=== PATIENT | female | born 1985 | race Caucasian/White ===

== ENCOUNTER 2016-07-18 15:32 | Emergency (ER) | payer MEDICAID ==
[2016-07-18 15:39] VITALS: BP 115/88
--- NOTE | 2016-07-18 15:47 | EDM.PDOC ---
ED HPI GENERAL MEDICAL PROBLEM - General Chief Complaint: ENT Problem Stated Complaint: TOOTH PAIN Time Seen by Provider: 07/18/16 15:33 Source of Information: Reports: Patient History Limitations: Reports: No Limitations - History of Present Illness INITIAL COMMENTS - FREE TEXT/NARRATIVE: The patient presents with right lower and upper tooth pain. She has some broken teeth with roots exposed. She also has some edema and pain. She denies fever or chills. She has no dentist in town. Onset: Gradual Duration: Day(s): (3) Location: Reports: Face (Dental pain on right upper and lower jaw) Quality: Reports: Sharp Severity: Severe Improves with: Reports: None Worsens with: Reports: None Associated Symptoms: Reports: No Other Symptoms Right Tooth/Teeth Pain Score (Numeric/FACES): 9 - Related Data Allergies Allergy/AdvReac Type Severity Reaction Status Date / Time oxycodone [From OxyContin] Allergy Vomiting Verified 07/18/16 15:39 Home Meds: Home Meds Amitriptyline [Elavil] 10 mg PO BEDTIME 07/18/16 [History] Hydrocodone/Acetaminophen [Hydrocodon-Acetaminophen 5-325] 1 - 2 each PO Q6HR PRN #20 tablet 07/18/16 [Rx] Penicillin V Potassium 500 mg PO Q6HR #40 tab 07/18/16 [Rx] Sertraline [Zoloft] 100 mg PO DAILY 07/18/16 [History] ED ROS ENT - Review of Systems Review Of Systems: See Below Constitutional: Reports: No Symptoms HEENT: Reports: Dental Pain Respiratory: Reports: No Symptoms Cardiovascular: Reports: No Symptoms Endocrine: Reports: No Symptoms GI/Abdominal: Reports: No Symptoms : Reports: No Symptoms Musculoskeletal: Reports: No Symptoms ED EXAM, ENT - Physical Exam Exam: See Below Exam Limited By: No Limitations General Appearance: Alert, No Apparent Distress Ears: Normal External Exam Nose: Normal Inspection Mouth/Throat: Other (Pain upon palpation to the right upper and lower jaw with mild edema. There is some fractured teeth.) Course - Vital Signs Last Recorded V/S: Last Vital Signs Temp 97.3 F 07/18/16 15:38 Pulse 95 07/18/16 15:38 Resp 20 07/18/16 15:38 BP 115/88 07/18/16 15:38 Pulse Ox 99 07/18/16 15:38 Departure - Departure Time of Disposition: 15:50 Disposition: Home, Self-Care 01 Condition: good Clinical Impression: Dental caries, Dental abscess, Pain, dental - Discharge Information Prescriptions: Hydrocodone/Acetaminophen [Hydrocodon-Acetaminophen 5-325] 1 - 2 each PO Q6HR PRN #20 tablet PRN Reason: Pain Penicillin V Potassium 500 mg PO Q6HR #40 tab Forms: ED Department Discharge Additional Instructions: Take the medication as prescribed. Follow up with a dentist. Please return if you are worse.
== END 2016-07-18 16:00 | disposition home or self-care (01) ==
LOC: JD.ED 15:32
DX: K04.7 Periapical abscess without sinus (principal); K02.9 Dental caries, unspecified; Z79.899 Other long term (current) drug therapy
CPT/HCPCS: 99283

== ENCOUNTER 2018-03-14 03:30 | Emergency (ER) | payer SELFPAY ==
[2018-03-14 03:48] VITALS: BP 148/100
[2018-03-14] MEDS ORDERED: HYDROmorphone 1 MG/ML Syringe IVPUSH ONE (04:05)
--- NOTE | 2018-03-14 04:05 | EDM.PDOC ---
ED HPI GENERAL MEDICAL PROBLEM - General Chief Complaint: Abdominal Pain Stated Complaint: BAD CRAMPS HISTORY OF OB ISSUES Time Seen by Provider: 03/14/18 04:00 Source of Information: Reports: Patient, Family History Limitations: Reports: No Limitations - History of Present Illness INITIAL COMMENTS - FREE TEXT/NARRATIVE: 32-year-old female attends the ED due to left lower quadrant pelvic pain radiating slightly to her lower back. Patient states that pain came on yesterday evening and has been gradually progressed in intensity. Patient works 4-11 shift and has not gone to bed yet today due to the severity of the pain. She states she was crying at home because the intensity of the pain. Pain is never rating up to the left flank. She has no history of renal lithiasis. She states her last 2 periods of been somewhat abnormal.. Denies any vaginal discharge dysuria urgency or frequency. Before last lasted only one day and was extremely heavy. The second period came a bit earlier than she anticip was heavy for one day and scanty for 2 more days. She is not using any form of control. She doesn't feel any breast tenderness or other signs or symptoms of . She's been ill as of late with some nausea vomiting and a lot of heartburn indigestion. She's also had some loose diarrhea stools 2 yesterday. No blood reported. 10 to be sharp and stabbing and strongly colicky. No previous abdominal surgery. He rates the pain is 5-6 out of 10. She does not appear to be in that period of discomfort. Onset: Gradual Onset Date: 03/13/18 Onset Time: 19:00 Duration: Hour(s):, Getting Worse Location: Reports: Abdomen Quality: Reports: Ache, Sharp, Stabbing Severity: Moderate (6710.) Improves with: Reports: Rest Worsens with: Reports: Other, Movement Context: Denies: Activity (Walking hurts.), Exercise, Sick Contact, Trauma, Other Associated Symptoms: Reports: No Other Symptoms, Loss of Appetite, Nausea/ Vomiting, Other. Denies: Confusion, Chest Pain, Cough, cough w sputum, Diaphoresis, Fever/Chills, Headaches, Malaise, Rash, Seizure (Acid some mild nausea vomiting and some bad heartburn the last few days), Shortness of Breath, Syncope Treatments [employer]ER: Reports: Other (see below) (Loose diarrhea stools 2 in the last 24 hours none.) Left Lower Abdomen Pain Score (Numeric/FACES): 5 - Related Data Allergies Allergy/AdvReac Type Severity Reaction Status Date / Time oxycodone [From OxyContin] Allergy Vomiting Verified 03/14/18 03:48 Home Meds: Home Meds Diclofenac Sodium [Voltaren] 50 mg PO TID #12 tab.ec 03/14/18 [Rx] Past Medical History HEENT History: Reports: Other (See Below) Other HEENT History: dental issues Psychiatric History: Reports: Depression Social & Family History - Tobacco Use Smoking Status *Q: Unknown Ever Smoked - Caffeine Use Caffeine Use: Reports: Soda - Living Situation & Occupation Living situation: Reports: Single Occupation: Employed ED ROS GENERAL - Review of Systems Review Of Systems: See Below Constitutional: Reports: Malaise, Fatigue, Decreased Appetite. Denies: Fever, Chills HEENT: Reports: Dental Pain Respiratory: Reports: No Symptoms Cardiovascular: Reports: No Symptoms Endocrine: Reports: No Symptoms GI/Abdominal: Reports: Abdominal Pain (See history of present illness), Diarrhea , Nausea (Loose mild's diarrhea stools the last 24 hours.), Other (GERD.). Denies: Flatus, Vomiting : Reports: No Symptoms Musculoskeletal: Reports: Back Pain (Low back pain but referred from the left lower quadrant abdominal pain) Skin: Reports: No Symptoms Neurological: Reports: No Symptoms Psychiatric: Reports: No Symptoms Hematologic/Lymphatic: Reports: No Symptoms Immunologic: Reports: No Symptoms ED EXAM, GI/ABD - Physical Exam Exam: See Below Exam Limited By: No Limitations General Appearance: Alert, WD/WN, No Apparent Distress, Other (Vital signs she is afebrile. BP is mildly elevated at 1 4100.) Eyes: Bilateral: Normal Appearance (No jaundice) Throat/Mouth: Other (Numerous dental caries appreciated particular a upper midline teeth.) Neck: Normal Inspection, Supple, Non-Tender, Full Range of Motion. No: Lymphadenopathy (L), Lymphadenopathy (R) Respiratory/Chest: No Respiratory Distress, Lungs Clear, Normal Breath Sounds, No Accessory Muscle Use, Chest Non-Tender Cardiovascular: Normal Peripheral Pulses, Regular Rate, Rhythm, No Edema, No Gallop, No Murmur, No Rub GI/Abdominal Exam: Normal Bowel Sounds, Soft, Tender (Nghia is well localized to the left lower quadrant of the abdomen deep almost in the pelvis.) Back Exam: Normal Inspection, Full Range of Motion. No: CVA Tenderness (L), CVA Tenderness (R) Extremities: Normal Inspection, Normal Range of Motion, Non-Tender, No Pedal Edema Neurological: Alert, Oriented, CN II-XII Intact, Normal Cognition Psychiatric: Normal Affect, Normal Mood Skin Exam: Warm, Dry, Intact, Normal Color, No Rash Course - Vital Signs Last Recorded V/S: Last Vital Signs Temp 36.9 C 03/14/18 03:44 Pulse 78 03/14/18 03:44 Resp 18 03/14/18 03:44 BP 148/100 H 03/14/18 03:44 Pulse Ox 100 03/14/18 03:44 - Orders/Labs/Meds Orders: Active Orders 24 hr Category Date Time Status Abdomen 1V Flat [CR] Stat Exams 03/14/18 04:06 Taken Dextrose 5%-0.9% NaCl [Dextrose 5%-Normal Saline] 1,000 Med 03/14/18 04:15 Active ml IV ASDIRECTED Ketorolac [Toradol] Med 03/14/18 05:00 Active 30 mg IVPUSH ONETIME Medication Orders Dextrose/Sodium Chloride (Dextrose 5%-Normal Saline) 1,000 mls @ 500 mls/hr IV ASDIRECTED RONNIE Last Admin: 03/14/18 04:26 Dose: 500 mls/hr Ketorolac Tromethamine (Toradol) 30 mg IVPUSH ONETIME RONNIE Last Admin: 03/14/18 05:05 Dose: 30 mg Labs: Laboratory Tests 03/14/18 03/14/18 03/14/18 Range/Units 03:40 03:40 04:19 WBC 10.88 H (3.98-10.04) K/mm3 RBC 4.16 (3.98-5.22) M/mm3 Hgb 11.9 (11.2-15.7) gm/L Hct 35.6 (34.1-44.9) % MCV 85.6 (79.4-94.8) fl MCH 28.6 (25.6-32.2) pg MCHC 33.4 (32.2-35.5) g/dl RDW Std Deviation 40.5 (36.4-46.3) fL Plt Count 246 (182-369) K/mm3 MPV 10.8 (9.4-12.3) fl Neutrophils % (Manual) 66 H (40-60) % Band Neutrophils % 0 (0-10) % Lymphocytes % (Manual) 29 (20-40) % Atypical Lymphs % 0 % Monocytes % (Manual) 4 (2-10) % Eosinophils % (Manual) 1 (0.7-5.8) % Basophils % (Manual) 0 L (0.1-1.2) Platelet Estimate Adequate RBC Morph Comment Normal Sodium (136-145) mEq/L Potassium (3.5-5.1) mEq/L Chloride (98-107) mEq/L Carbon Dioxide (21-32) mEq/L Anion Gap (5-15) BUN (7-18) mg/dL Creatinine (0.55-1.02) mg/dL Est Cr Clr Drug Dosing Estimated GFR (MDRD) (>60) mL/min BUN/Creatinine Ratio (14-18) Glucose (74-106) mg/dL Calcium (8.5-10.1) mg/dL Total Bilirubin (0.2-1.0) mg/dL AST (15-37) U/L ALT (14-59) U/L Alkaline Phosphatase (46-116) U/L C-Reactive Protein (<1.0) mg/dL Total Protein (6.4-8.2) g/dl Albumin (3.4-5.0) g/dl Globulin gm/dL Albumin/Globulin Ratio (1-2) Urine Color Yellow (Yellow) Urine Appearance Clear (Clear) Urine pH 6.0 (5.0-8.0) Ur Specific [place] 1.025 (1.005-1.030) Urine Protein Negative (Negative) Urine Glucose (UA) Negative (Negative) Urine Ketones Negative (Negative) Urine Occult Blood 1+ H (Negative) Urine Nitrite Negative (Negative) Urine Bilirubin Negative (Negative) Urine Urobilinogen 0.2 (0.2-1.0) Ur Leukocyte Esterase Negative (Negative) Urine RBC 0-5 (0-5) /hpf Urine WBC 0-5 (0-5) /hpf Ur Epithelial Cells 5-10 H (0-5) /hpf Calcium Oxalate Crystal Few H (NONE) Urine Bacteria Few (FEW) /hpf Urine Mucus Moderate H (FEW) /hpf Urine HCG, Qual Negative (NEGATIVE) 03/14/18 Range/Units 04:19 WBC (3.98-10.04) K/mm3 RBC (3.98-5.22) M/mm3 Hgb (11.2-15.7) gm/L Hct (34.1-44.9) % MCV (79.4-94.8) fl MCH (25.6-32.2) pg MCHC (32.2-35.5) g/dl RDW Std Deviation (36.4-46.3) fL Plt Count (182-369) K/mm3 MPV (9.4-12.3) fl Neutrophils % (Manual) (40-60) % Band Neutrophils % (0-10) % Lymphocytes % (Manual) (20-40) % Atypical Lymphs % % Monocytes % (Manual) (2-10) % Eosinophils % (Manual) (0.7-5.8) % Basophils % (Manual) (0.1-1.2) Platelet Estimate RBC Morph Comment Sodium 141 (136-145) mEq/L Potassium 3.5 (3.5-5.1) mEq/L Chloride 104 (98-107) mEq/L Carbon Dioxide 28 (21-32) mEq/L Anion Gap 12.5 (5-15) BUN 14 (7-18) mg/dL Creatinine 1.0 (0.55-1.02) mg/dL Est Cr Clr Drug Dosing TNP Estimated GFR (MDRD) > 60 (>60) mL/min BUN/Creatinine Ratio 14.0 (14-18) Glucose 102 (74-106) mg/dL Calcium 9.4 (8.5-10.1) mg/dL Total Bilirubin 0.1 L (0.2-1.0) mg/dL AST 11 L (15-37) U/L ALT 20 (14-59) U/L Alkaline Phosphatase 77 (46-116) U/L C-Reactive Protein 1.0 (<1.0) mg/dL Total Protein 7.0 (6.4-8.2) g/dl Albumin 3.8 (3.4-5.0) g/dl Globulin 3.2 gm/dL Albumin/Globulin Ratio 1.2 (1-2) Urine Color (Yellow) Urine Appearance (Clear) Urine pH (5.0-8.0) Ur Specific [place] (1.005-1.030) Urine Protein (Negative) Urine Glucose (UA) (Negative) Urine Ketones (Negative) Urine Occult Blood (Negative) Urine Nitrite (Negative) Urine Bilirubin (Negative) Urine Urobilinogen (0.2-1.0) Ur Leukocyte Esterase (Negative) Urine RBC (0-5) /hpf Urine WBC (0-5) /hpf Ur Epithelial Cells (0-5) /hpf Calcium Oxalate Crystal (NONE) Urine Bacteria (FEW) /hpf Urine Mucus (FEW) /hpf Urine HCG, Qual (NEGATIVE) Meds: Medications Generic Name Dose Route Start Last Admin Trade Name Freq PRN Reason Stop Dose Admin Dextrose/Sodium Chloride 1,000 mls @ 500 mls/hr 03/14/18 04:15 03/14/18 04:26 Dextrose 5%-Normal Saline IV 500 mls/hr ASDIRECTED RONNIE Administration Ketorolac Tromethamine 30 mg 03/14/18 05:00 03/14/18 05:05 Toradol IVPUSH 30 mg ONETIME RONNIE Administration Discontinued Medications Generic Name Dose Route Start Last Admin Trade Name Freq PRN Reason Stop Dose Admin Hydromorphone HCl 0.5 mg 03/14/18 04:05 03/14/18 04:22 Dilaudid IVPUSH 03/14/18 04:06 0.5 mg ONETIME ONE Administration Metoclopramide HCl 7.5 mg 03/14/18 04:06 03/14/18 04:21 Reglan IVPUSH 03/14/18 04:07 7.5 mg ONETIME ONE Administration - Radiology Interpretation Free Text/Narrative:: 32-year-old female presents the ED with gradually worsening left lower quadrant pelvic pain for the last 8 hours or more. She states the pain and intermittently becomes very colicky sharp and stabbing. Foreskin the ED she was crying at home. Currently pain is rated as a 5 out of 10 radiating to her left back. Radiating into her left flank. [place] reveals bowel sounds are mildly present in all 4 quadrants. Abdomen is mildly obese no previous surgical scars. Tenderness on deep palpation left lower quadrant of the abdomen almost in the groin/ pelvis. Periods of been somewhat irregular the last few months and the possibility of exists. Plan urinalysis and urine test. G labs including a CRP. One view of the abdomen will be done. IV will ED to D5 normal saline at 500 mils per hour. Given Dilaudid 0.5 mg IV and Reglan 7.5 mg IV. Pending these results I will decide if she needs a pelvic exam and perhaps follow-up pelvic ultrasound. - Re-Assessments/Exams Free Text/Narrative Re-Assessment/Exam: 03/14/18 04:51 KUB reveals slightly increased stool in the right hemicolon but no other abnormalities. There is also slightly increased stool in the descending colon making the amount of diarrhea she is experiencing likely minimal. The pelvis is empty and there is no evidence of any kidney stones. Bowel gas pattern is normal 03/14/18 04:54 urinalysis is essentially normal. Urine Beta hCG is also negative. She reports pain is getting better but still rates as a 4 out of 10. She again does not look to be in that degree of pain. I will give her Toradol 30 mg IV. 03/14/18 05:11 Labs are back. Total white count is 10.88 with 66% neutrophils and no band cells reported. Hemoglobin is mildly low 11.9 with hematocrit of 35.6. MCV is normal at 85.6. Will count normal 246,000. Sodium 141 with a potassium of 3.5. Chloride 104 the bicarbonate 28. And a gap is 12.5. BUN is 14 with a creatinine of 1.0. Glucose is 102. Calcium 9.4. Total bilirubin 0.1. AST is 11 with an ALT of 20. Alk phosphatase is normal at 77. C-reactive protein is 1.0. Urinalysis showed 1+ occult blood on the dip. Leukocyte Estrace was negative. On the micro-or slide 0-5 rbc's 0-5 WBCs and 5-10 epithelial suggesting some degree of contamination. Few calcium oxalate crystals appreciated moderate urine mucus. Patient's pain is improved after the Toradol IV. Suspect a small ruptured ovarian cyst. She is self-pay and doesn't wish to undergo any further investigations such as transient vaginal ultrasound or CT of the abdomen. That her abdominal examination is quite benign. Therefore be discharged to home on Toradol 10 mg every 6 hours needed for pain relief since she is allergic to oxycodone and likely hydrocodone both causing some excessive nausea and vomiting. Departure - Departure Time of Disposition: 05:16 Disposition: Home, Self-Care 01 Condition: Fair Clinical Impression: Abdominal pain Qualifiers: Abdominal location: left lower quadrant Qualified Code(s): R10.32 - Left lower quadrant pain Ovarian cyst Qualifiers: Laterality: left Qualified Code(s): N83.202 - Unspecified ovarian cyst, left side - Discharge Information *PRESCRIPTION DRUG MONITORING PROGRAM REVIEWED*: Not Applicable *COPY OF PRESCRIPTION DRUG MONITORING REPORT IN PATIENT BEV: Not Applicable Prescriptions: Diclofenac Sodium [Voltaren] 50 mg PO TID #12 tab.ec Referrals: PCP,None [Primary Care Provider] - Forms: ED Department Discharge, ED Return to Work/School Form Additional Instructions: Evaluation the emergency room this morning in regards to left lower quadrant abdominal pain that progressed over the last 8 hours. E[place] reveals tenderness on the left lower quadrant and left pelvis area. Urinalysis shows no evidence of kidney stone or infection. Urine test was also negative. Lab tests revealed no signs of an active infection and liver and kidney function are normal. X-ray of the abdomen showed no abnormalities involving the bowel. Therefore it is suspect that she likely had stevan small cyst rupture from the left ovary which causes inflammation of the lower lining of the abdomen and the current pain response. Usually subsides gradually over the next 3 days. Because your allergic to narcotic medications as they cause significant nausea and vomiting. Suggest use of Voltaren 50 mg 3 times daily about every 8 hours for the next 3-4 days to relieve pain and inflammation. Given to excuse her from the workplace today and tomorrow if needed. If pain not markedly improved in 48-72 hours time he should be reviewed either here or in the [facility]. - My Orders Last 24 Hours: My Active Orders 03/14/18 04:06 Abdomen 1V Flat [CR] Stat 03/14/18 04:15 Dextrose 5%-0.9% NaCl [Dextrose 5%-Normal Saline] 1,000 ml IV ASDIRECTED 03/14/18 05:00 Ketorolac [Toradol] 30 mg IVPUSH ONETIME - Assessment/Plan Last 24 Hours: My Active Orders 03/14/18 04:06 Abdomen 1V Flat [CR] Stat 03/14/18 04:15 Dextrose 5%-0.9% NaCl [Dextrose 5%-Normal Saline] 1,000 ml IV ASDIRECTED 03/14/18 05:00 Ketorolac [Toradol] 30 mg IVPUSH ONETIME
[2018-03-14] MEDS ORDERED: Metoclopramide 10 MG/2 ML SDV IVPUSH ONE (04:06)
[2018-03-14] MEDS ORDERED: Dextrose 5%-0.9% NaCl 1,000 ML IV SCH (04:15)
[2018-03-14] MEDS ORDERED: Ketorolac 30 MG/ML SDV IVPUSH SCH (05:00)
--- NOTE | 2018-03-14 06:16 | CR ---
Abdomen: Supine view of the abdomen was obtained. Comparison: No previous study. Bowel gas pattern is normal. Small calcification is noted within the left pelvis most likely due to small phlebolith if the patient has no obstructive ureteral symptoms. Equivocal small nonobstructing stone within the right kidney is seen. No soft tissue abnormality seen. Bony structures are unremarkable. Impression: 1. Possible small nonobstructing stone right kidney. 2. Minimal calcification within the left pelvis representing phlebolith if patient has no symptoms to indicate distal ureteral stone. Diagnostic code #2
== END 2018-03-14 05:35 | disposition home or self-care (01) ==
LOC: JD.ED 03:30
DX: N83.202 Unspecified ovarian cyst, left side (principal); Z88.5 Allergy status to narcotic agent
CPT/HCPCS: 36415; 74018; 80053; 81001; 81025; 85007; 85027; 86140; 96361; 96374; 96375; 99284; J1170; J1885; J2765; J7042

== ENCOUNTER 2018-04-17 13:57 | Emergency (ER) | payer SELFPAY ==
[2018-04-17 14:49] VITALS: BP 124/85
--- NOTE | 2018-04-17 15:27 | CR ---
Chest: Two views of the chest were obtained. Comparison: No prior chest x-ray. Heart size and mediastinum are normal. Lungs are clear with no acute parenchymal change. Bony structures are unremarkable. Impression: 1. Nothing acute is seen on two-view chest x-ray. Diagnostic code #1
[2018-04-17] MEDS ORDERED: predniSONE 20 MG Tab PO ONE (15:57)
--- NOTE | 2018-04-17 16:03 | EDM.PDOC ---
ED HPI GENERAL MEDICAL PROBLEM - General Chief Complaint: Respiratory Problem Stated Complaint: COUGH & VOMITING Time Seen by Provider: 04/17/18 15:10 Source of Information: Reports: Patient, RN Notes Reviewed History Limitations: Reports: No Limitations - History of Present Illness INITIAL COMMENTS - FREE TEXT/NARRATIVE: Patient is a 33 year old female who presents to the ED for the evaluation of a cough/vomiting. She states that this has been present for 2 days. She states that she coughs so much that she vomits. She is coughing hard enough that she has "messed herself". She admits to a history of Asthma. She does have an albuterol inhaler for his and has been using this the last 2 days. She admits to runny nose, nasal congestion, chest pain from coughing, watery eyes, and cough. She states that she is a smoker and uses 0.5 ppd. She states that she had a fever last night of 101 deg F, but did not have one today. Thoracic Pain Score (Numeric/FACES): 1 - Related Data Allergies Allergy/AdvReac Type Severity Reaction Status Date / Time oxycodone [From OxyContin] Allergy Vomiting Verified 04/17/18 14:49 Home Meds: Home Meds Albuterol [Proventil HFA] 1 inh INH ASDIRECTED 04/17/18 [History] Benzonatate [Tessalon Perle] 100 mg PO TID PRN #21 capsule 04/17/18 [Rx] Ondansetron [Zofran ODT] 4 mg PO Q6H PRN #20 tab.dis 04/17/18 [Rx] predniSONE [Deltasone] 20 mg PO ASDIRECTED #15 tablet 04/17/18 [Rx] Past Medical History HEENT History: Reports: Other (See Below) Other HEENT History: dental issues Respiratory History: Reports: Asthma Psychiatric History: Reports: Depression - Past Surgical History HEENT Surgical History: Reports: Other (See Below) Other HEENT Surgeries/Procedures: screen placement Social & Family History - Tobacco Use Smoking Status *Q: Current Every Day Smoker Years of Tobacco use: 15 Packs/Tins Daily: 0.5 - Caffeine Use Caffeine Use: Reports: Coffee - Recreational Drug Use Recreational Drug Use: No - Living Situation & Occupation Living situation: Reports: Single Occupation: Employed ED ROS GENERAL - Review of Systems Review Of Systems: See Below Constitutional: Reports: Fever. Denies: Chills, Malaise, Diaphoresis HEENT: Reports: Rhinitis Respiratory: Reports: Cough. Denies: Shortness of Breath, Wheezing Cardiovascular: Reports: Chest Pain (froum coughing) Endocrine: Reports: No Symptoms GI/Abdominal: Reports: Diarrhea, Nausea, Vomiting. Denies: Abdominal Pain : Reports: No Symptoms Musculoskeletal: Reports: No Symptoms Skin: Reports: No Symptoms Neurological: Reports: No Symptoms Psychiatric: Reports: No Symptoms Hematologic/Lymphatic: Reports: No Symptoms Immunologic: Reports: No Symptoms ED EXAM, GENERAL - Physical Exam Exam: See Below Exam Limited By: No Limitations General Appearance: Alert, WD/WN, No Apparent Distress Eye Exam: Bilateral Eye: EOMI, Normal Inspection, PERRL Ears: Normal External Exam Nose: Normal Inspection, Nasal Swelling (mild turbinate injection), Clear Rhinorrhea Throat/Mouth: Normal Inspection, Normal Oropharynx, No Airway Compromise, Other (poor dentition noted) Head: Atraumatic, Normocephalic Neck: Normal Inspection, Supple, Non-Tender, Full Range of Motion Respiratory/Chest: No Respiratory Distress, Lungs Clear, Normal Breath Sounds, No Accessory Muscle Use, Chest Non-Tender Cardiovascular: Normal Peripheral Pulses, Regular Rate, Rhythm, No Murmur GI/Abdominal: Normal Bowel Sounds, Soft, Non-Tender, No Distention, No Mass Extremities: Normal Inspection, Normal Capillary Refill Neurological: Alert, Oriented, Normal Cognition, No Motor/Sensory Deficits Psychiatric: Normal Affect, Normal Mood Skin Exam: Warm, Dry, Intact, Normal Color, No Rash Course - Vital Signs Last Recorded V/S: Last Vital Signs Temp 98 F 04/17/18 14:45 Pulse 95 04/17/18 14:45 Resp 18 04/17/18 14:45 BP 124/85 04/17/18 14:45 Pulse Ox 98 04/17/18 14:45 - Orders/Labs/Meds Labs: Laboratory Tests 04/17/18 04/17/18 Range/Units 15:20 15:20 WBC 8.70 (3.98-10.04) K/mm3 RBC 4.17 (3.98-5.22) M/mm3 Hgb 11.7 (11.2-15.7) gm/L Hct 36.3 (34.1-44.9) % MCV 87.1 (79.4-94.8) fl MCH 28.1 (25.6-32.2) pg MCHC 32.2 (32.2-35.5) g/dl RDW Std Deviation 43.4 (36.4-46.3) fL Plt Count 211 (182-369) K/mm3 MPV 11.1 (9.4-12.3) fl Neut % (Auto) 70.0 (34.0-71.1) % Lymph % (Auto) 21.7 (19.3-51.7) % [place] % (Auto) 7.7 (4.7-12.5) % Eos % (Auto) 0.3 L (0.7-5.8) Baso % (Auto) 0.2 (0.1-1.2) % Neut # (Auto) 6.08 (1.56-6.13) K/mm3 Lymph # (Auto) 1.89 (1.18-3.74) K/mm3 [place] # (Auto) 0.67 H (0.24-0.36) K/mm3 Eos # (Auto) 0.03 L (0.04-0.36) K/mm3 Baso # (Auto) 0.02 (0.01-0.08) K/mm3 Sodium 142 (136-145) mEq/L Potassium 3.8 (3.5-5.1) mEq/L Chloride 107 (98-107) mEq/L Carbon Dioxide 24 (21-32) mEq/L Anion Gap 14.8 (5-15) BUN 9 (7-18) mg/dL Creatinine 0.9 (0.55-1.02) mg/dL Est Cr Clr Drug Dosing 71.63 mL/min Estimated GFR (MDRD) > 60 (>60) mL/min BUN/Creatinine Ratio 10.0 L (14-18) Glucose 107 H (74-106) mg/dL Calcium 8.8 (8.5-10.1) mg/dL Total Bilirubin 0.3 (0.2-1.0) mg/dL AST 12 L (15-37) U/L ALT 18 (14-59) U/L Alkaline Phosphatase 71 (46-116) U/L Total Protein 7.2 (6.4-8.2) g/dl Albumin 3.5 (3.4-5.0) g/dl Globulin 3.7 gm/dL Albumin/Globulin Ratio 1.0 (1-2) Meds: Medications Discontinued Medications Generic Name Dose Route Start Last Admin Trade Name Elmerq PRN Reason Stop Dose Admin Prednisone 20 mg 04/17/18 15:57 04/17/18 16:03 Prednisone PO 04/17/18 15:58 20 mg ONETIME ONE Administration - Re-Assessments/Exams Free Text/Narrative Re-Assessment/Exam: 04/17/18 16:10 Pt presents to the ED for the evaluation of cough/congestion. Her chest x-ray as ordered per triage nurse was negative for any acute changes, and her influenza swab was negative. She seems to be suffering from Viral URI symptoms, I have ordered prednisone, due to her Asthma diagnosis. She is not wheezy at ED presentation. I am hoping this helps with cough, so she might get some rest. I have provided her with a script for this, tessalon perles, and zofran ODT for the nausea/vomiting. General recommendations have been made regarding her disease process. A recommendation for establishing care with a PCP was discussed to her Asthma status. 04/17/18 16:19 Labs are also suggestive of a viral illness vs bacterial illness. Departure - Departure Time of Disposition: 16:14 Disposition: Home, Self-Care 01 Condition: Fair Clinical Impression: Viral URI with cough - Discharge Information *PRESCRIPTION DRUG MONITORING PROGRAM REVIEWED*: No *COPY OF PRESCRIPTION DRUG MONITORING REPORT IN PATIENT BEV: No Prescriptions: Benzonatate [Tessalon Perle] 100 mg PO TID PRN #21 capsule PRN Reason: Cough Ondansetron [Zofran ODT] 4 mg PO Q6H PRN #20 tab.dis PRN Reason: Nausea predniSONE [Deltasone] 20 mg PO ASDIRECTED #15 tablet Instructions: Viral Respiratory Infection, [id number] Referrals: PCP,None [Primary Care Provider] - Forms: ED Department Discharge, ED Return to Work/School Form Additional Instructions: You have been evaluated in the ED for your cough/congestion. Your symptoms are likely due to a viral upper respiratory infection. You have been provided prescriptions for your cough, these have been sent to [facility], as per your choice. You may take OTC cold medication to help alleviate your cold symptoms. This is likely to last around 5-7 days. You should be feeling better in a short amount of time. Recommend setting up with a primary care provider for management of your Asthma/ other chronic issues. Please call [phone] to do so. Please return to the ED if your symptoms change or worsen.
== END 2018-04-17 16:29 | disposition home or self-care (01) ==
LOC: JD.ED 13:57
DX: J06.9 Acute upper respiratory infection, unspecified (principal); F17.210 Nicotine dependence, cigarettes, uncomplicated; Z88.5 Allergy status to narcotic agent; Z79.899 Other long term (current) drug therapy
CPT/HCPCS: 36415; 71046; 80053; 85025; 87804; 99284; A9270; 99283

== ENCOUNTER 2018-06-08 22:23 | Emergency (ER) | payer SELFPAY ==
[2018-06-08 22:33] VITALS: BP 128/87
--- NOTE | 2018-06-08 22:35 | EDM.PDOC ---
ED HPI GENERAL MEDICAL PROBLEM - General Chief Complaint: Gastrointestinal Problem Stated Complaint: FLU SYMPTOMS Time Seen by Provider: 06/08/18 22:34 - History of Present Illness INITIAL COMMENTS - FREE TEXT/NARRATIVE: 33-year-old female presents emergency room with nausea vomiting and abdominal discomfort. this has been going on for the last 3 days. Progressively getting worse. She cannot keep anything down she's had some intermittent loose stools with this. After vomited a few times she developed some abdominal discomfort that seems to get worse with nausea and vomiting this tends to improve between spells of vomiting. Patient has not had any abdominal surgeries in the past she has had one term delivery. The patient did have a cough prior to this but this is improving. Her urine output is slightly diminished but no burning or frequency with urination no pain with urination - Related Data Allergies Allergy/AdvReac Type Severity Reaction Status Date / Time oxycodone [From OxyContin] Allergy Vomiting Verified 04/17/18 14:49 Home Meds: Home Meds Albuterol [Proventil HFA] 1 inh INH ASDIRECTED 04/17/18 [History] Benzonatate [Tessalon Perle] 100 mg PO TID PRN #21 capsule 04/17/18 [Rx] Ondansetron [Zofran ODT] 4 mg PO Q6H PRN #20 tab.dis 04/17/18 [Rx] predniSONE [Deltasone] 20 mg PO ASDIRECTED #15 tablet 04/17/18 [Rx] Past Medical History HEENT History: Reports: Other (See Below) Other HEENT History: dental issues Respiratory History: Reports: Asthma Psychiatric History: Reports: Depression - Past Surgical History HEENT Surgical History: Reports: Other (See Below) Other HEENT Surgeries/Procedures: screen placement Social & Family History - Caffeine Use Caffeine Use: Reports: Coffee - Living Situation & Occupation Living situation: Reports: Single Occupation: Employed ED ROS GENERAL - Review of Systems Review Of Systems: See Below Constitutional: Denies: Fever, Chills HEENT: Reports: No Symptoms Respiratory: Reports: Cough (Improving). Denies: Sputum Cardiovascular: Reports: No Symptoms Endocrine: Reports: No Symptoms GI/Abdominal: Reports: Abdominal Pain, Diarrhea, Nausea, Vomiting : Reports: No Symptoms Musculoskeletal: Reports: No Symptoms Skin: Reports: No Symptoms Neurological: Reports: No Symptoms ED EXAM, GI/ABD - Physical Exam Exam: See Below Exam Limited By: No Limitations General Appearance: Alert, No Apparent Distress Eyes: Bilateral: Normal Appearance Ears: Normal External Exam, Normal Canal, Hearing Grossly Normal, Normal TMs Nose: Normal Inspection, Normal Mucosa, No Blood Throat/Mouth: Normal Inspection, Normal Lips, Normal Teeth, Normal Gums, Normal Oropharynx, Normal Voice, No Airway Compromise, Other (Poor dentition) Head: Atraumatic, Normocephalic Neck: Normal Inspection, Supple, Non-Tender, Full Range of Motion Respiratory/Chest: No Respiratory Distress, Lungs Clear, Normal Breath Sounds Cardiovascular: Regular Rate, Rhythm, No Edema, No Murmur GI/Abdominal Exam: Normal Bowel Sounds, Soft, Non-Tender Back Exam: Normal Inspection. No: CVA Tenderness (L), CVA Tenderness (R) Extremities: Normal Inspection, No Pedal Edema Course - Vital Signs Last Recorded V/S: Last Vital Signs Temp 36.6 C 06/08/18 22:28 Pulse 80 06/08/18 22:28 Resp 18 06/08/18 22:28 BP 128/87 06/08/18 22:28 Pulse Ox 99 06/08/18 22:28 Orthostatic Blood Pressure [ 128/95 Standing] Orthostatic Blood Pressure [ 128/87 Supine] - Orders/Labs/Meds Labs: Laboratory Tests 06/08/18 06/08/18 06/08/18 Range/Units 22:55 22:55 22:55 WBC 9.69 (3.98-10.04) K/mm3 RBC 4.68 (3.98-5.22) M/mm3 Hgb 13.1 (11.2-15.7) gm/L Hct 40.1 (34.1-44.9) % MCV 85.7 (79.4-94.8) fl MCH 28.0 (25.6-32.2) pg MCHC 32.7 (32.2-35.5) g/dl RDW Std Deviation 42.9 (36.4-46.3) fL Plt Count 248 (182-369) K/mm3 MPV 11.0 (9.4-12.3) fl Neutrophils % (Manual) 59 (40-60) % Band Neutrophils % 1 (0-10) % Lymphocytes % (Manual) 33 (20-40) % Atypical Lymphs % 0 % Monocytes % (Manual) 6 (2-10) % Eosinophils % (Manual) 1 (0.7-5.8) % Basophils % (Manual) 0 L (0.1-1.2) Platelet Estimate Adequate Plt Morphology Comment Normal RBC Morph Comment Normal Sodium 140 (136-145) mEq/L Potassium 3.7 (3.5-5.1) mEq/L Chloride 104 (98-107) mEq/L Carbon Dioxide 25 (21-32) mEq/L Anion Gap 14.7 (5-15) BUN 10 (7-18) mg/dL Creatinine 0.9 (0.55-1.02) mg/dL Est Cr Clr Drug Dosing 71.63 mL/min Estimated GFR (MDRD) > 60 (>60) mL/min BUN/Creatinine Ratio 11.1 L (14-18) Glucose 105 (74-106) mg/dL Calcium 9.7 (8.5-10.1) mg/dL Total Bilirubin 0.5 (0.2-1.0) mg/dL AST 17 (15-37) U/L ALT 26 (14-59) U/L Alkaline Phosphatase 70 (46-116) U/L Total Protein 7.8 (6.4-8.2) g/dl Albumin 4.0 (3.4-5.0) g/dl Globulin 3.8 gm/dL Albumin/Globulin Ratio 1.1 (1-2) Lipase 100 (73-393) U/L HCG, Qual Negative (NEGATIVE) Meds: Medications Discontinued Medications Generic Name Dose Route Start Last Admin Trade Name Freq PRN Reason Stop Dose Admin Lactated Ringer's 1,000 mls @ 999 mls/hr 06/08/18 22:45 06/08/18 23:03 Ringers, Lactated IV 06/08/18 23:45 999 mls/hr .BOLUS ONE Administration Ondansetron HCl 4 mg 06/08/18 22:52 06/08/18 23:03 Zofran IVPUSH 06/08/18 22:53 4 mg ONETIME ONE Administration - Re-Assessments/Exams Free Text/Narrative Re-Assessment/Exam: 06/09/18 00:12 Patient is doing much better after IV fluids and IV Zofran. And she would like to go home area the patient has oral Zofran at home but the aftertaste makes her ill at times advised her to break it up in applesauce or just go ahead and swallow with this muscle sip of water she'll try this and see how it goes. Departure - Departure Time of Disposition: 00:13 Disposition: Home, Self-Care 01 Clinical Impression: Gastroenteritis - Discharge Information Referrals: PCP,None [Primary Care Provider] - Forms: ED Department Discharge Additional Instructions: Return to the emergency room with any questions problems worsening symptoms. Use the Zofran as we discussed. Clear liquid diet for the next 24 hours then slowly advance as tolerated.
[2018-06-08] MEDS ORDERED: Lactated Ringers 1,000 ML IV ONE (22:45)
[2018-06-08] MEDS ORDERED: Ondansetron 4 MG/2 ML SDV IVPUSH ONE (22:52)
== END 2018-06-09 00:17 | disposition home or self-care (01) ==
LOC: JD.ED 22:23
DX: K52.9 Noninfective gastroenteritis and colitis, unspecified (principal); Z88.6 Allergy status to analgesic agent
CPT/HCPCS: 36415; 80053; 83690; 84703; 85007; 85027; 96361; 96374; 99284; J2405; J7120; 99283

== ENCOUNTER 2019-01-01 22:23 | Emergency (ER) | payer SELFPAY ==
[2019-01-01 22:41] VITALS: BP 131/82; PULSE 85
[2019-01-01] MEDS ORDERED: Albuterol/Ipratropium 3.0-0.5 MG/3 ML Neb Soln NEB ONE (23:14)
--- NOTE | 2019-01-01 23:14 | EDM.PDOC ---
ED HPI GENERAL MEDICAL PROBLEM - General Chief Complaint: Respiratory Problem Stated Complaint: SORE THROAT/COUGH Time Seen by Provider: 01/01/19 23:04 Source of Information: Reports: Patient History Limitations: Reports: No Limitations - History of Present Illness INITIAL COMMENTS - FREE TEXT/NARRATIVE: 33-year-old female presents the ED due to severe paroxysmal cough and sore throat and plugged up ears. She is aware of her sinuses being very congested and has chronic allergic rhinitis. Cough is occassionally productive of chunks of sputum. She hasn't had a good look at the color. Intermittent fever and chills. Became sick 7 days ago. She feels she is getting worse. He feels she is wheezing intermittently as well. She had a new albuterol inhaler in the past but does not have one currently. She is allergic to oxycodone and therefore codeine cough syrup as well as hydrocodone cough syrup is relatively contraindicated. Onset: Gradual Onset Date: 12/25/18 Duration: Day(s):, Getting Worse Location: Reports: Head (Jordyn inner ears and sinus congestion.), Chest (Harsh paroxysmal productive cough. Becoming more productive over the last few days.) Quality: Reports: Other (Harsh paroxysmal productive cough. Pressure in ears with muffled hearing.) Severity: Moderate Improves with: Reports: None Worsens with: Reports: Other (Worse with exposure to cool night air and lying down.) Context: Reports: Other. Denies: Activity, Exercise, Lifting, Sick Contact, Trauma Associated Symptoms: Reports: Chest Pain, Cough, cough w sputum (Spontaneous occurrence), Fever/Chills, Headaches, Loss of Appetite, Malaise, Shortness of Breath. 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) Throat Pain Score (Numeric/FACES): 7 - Related Data Allergies Allergy/AdvReac Type Severity Reaction Status Date / Time onion Allergy Swelling Verified 01/01/19 22:38 oxycodone [From OxyContin] Allergy Vomiting Verified 09/24/18 14:47 Home Meds: Home Meds Azithromycin [Zithromax] 250 mg PO DAILY #8 tab 01/01/19 [Rx] predniSONE [Prednisone] 20 mg PO ASDIRECTED #15 tablet 01/01/19 [Rx] Past Medical History HEENT History: Reports: Other (See Below) Other HEENT History: dental issues Respiratory History: Reports: Asthma Musculoskeletal History: Reports: Fracture Other Musculoskeletal History: Mesh in cheek from orbital bone fx Psychiatric History: Reports: Depression - Past Surgical History HEENT Surgical History: Reports: Other (See Below) Other HEENT Surgeries/Procedures: screen placement Social & Family History - Family History Family Medical History: Noncontributory - Tobacco Use Smoking Status *Q: Current Every Day Smoker Years of Tobacco use: 19 Packs/Tins Daily: 0.5 - Caffeine Use Caffeine Use: Reports: Coffee - Recreational Drug Use Recreational Drug Use: Yes Drug Use in Last 12 Months: No Recreational Drug Use Frequency: Not Used In Over 6 Months - Living Situation & Occupation Living situation: Reports: Single Occupation: Employed ED ROS GENERAL - Review of Systems Review Of Systems: See Below Constitutional: Reports: Fever, Malaise, Weakness, Fatigue, Decreased Appetite. Denies: Chills HEENT: Reports: Ear Pain (Ear fullness and muffled hearing.), Throat Pain Respiratory: Reports: Shortness of Breath (She believes from coughing so much.) , Wheezing, Cough, Sputum. Denies: Pleuritic Chest Pain, Hemoptysis Cardiovascular: Reports: Chest Pain (Productive sputum but she hasn't had a look at the color.), Dyspnea on Exertion. Denies: Blood Pressure Problem, Claudication ( Central chest pain from coughing so much.), Edema, Lightheadedness, Orthopnea, Palpitations Endocrine: Reports: Fatigue GI/Abdominal: Reports: Diarrhea (Had terrible abdominal cramping pain yesterday has had diarrhea 4 today every time she eats. Cramping is somewhat better.), Decreased Appetite. Denies: Abdominal Pain : Reports: No Symptoms Musculoskeletal: Reports: No Symptoms Skin: Reports: No Symptoms Neurological: Reports: No Symptoms Psychiatric: Reports: No Symptoms Hematologic/Lymphatic: Reports: No Symptoms Immunologic: Reports: No Symptoms ED EXAM, GENERAL - Physical Exam Exam: See Below Exam Limited By: No Limitations General Appearance: Alert, WD/WN, Mild Distress, Other (Harsh paroxysmal productive sounding cough. Vital signs show temperature 36.8 pulse 85 in sinus respiratory to be 18 sats of 100% on room air BP 131/82.) Eye Exam: Bilateral Eye: Normal Inspection, PERRL Ears: Other (Lateral bulging eardrums with serous otitis media. For a slight erythema) Nose: Clear Rhinorrhea, Other (Marked nasal swelling of the medial and superior turbinates and early polyps bilaterally.) Throat/Mouth: Normal Inspection, Normal Lips, Normal Teeth, Normal Oropharynx, Inflammation Head: Normocephalic, Sinus Tenderness (Tenderness over the ethmoid and sphenoid sinuses and maxillary sinuses.), Other. No: Facial Swelling Neck: Normal Inspection, Supple, Non-Tender, Lymphadenopathy (L). No: Carotid Bruit, Lymphadenopathy (R) (Minimal.) Respiratory/Chest: No Respiratory Distress, No Accessory Muscle Use, Wheezing. No: Lungs Clear, Normal Breath Sounds, Chest Non-Tender Cardiovascular: Normal Peripheral Pulses, Regular Rate, Rhythm, No Edema, No Gallop, No Murmur, No Rub Peripheral Pulses: 3+: Carotid (L), Carotid (R), Posterior Tibial (L), Posterior Tibial (R), Dorsalis Pedis (L), Dorsalis Pedis (R) GI/Abdominal: Normal Bowel Sounds, Soft, Non-Tender, No Organomegaly, No Abnormal Bruit, No Mass, Pelvis Stable, Other (Benign abdominal exam). No: Guarding, Rigid, Rebound Back Exam: Normal Inspection, Full Range of Motion. No: CVA Tenderness (L), CVA Tenderness (R) Extremities: Normal Inspection, Normal Range of Motion, Non-Tender Neurological: Alert, Oriented, CN II-XII Intact, Normal Cognition, No Motor/ Sensory Deficits Psychiatric: Normal Affect, Normal Mood Skin Exam: Warm, Dry, Intact, Normal Color, No Rash Course - Vital Signs Last Recorded V/S: Last Vital Signs Temp 36.8 C 01/01/19 22:38 Pulse 85 01/01/19 22:38 Resp 18 01/01/19 22:38 BP 131/82 01/01/19 22:38 Pulse Ox 100 01/01/19 22:38 - Orders/Labs/Meds Orders: Active Orders 24 hr Category Date Time Status RT Aerosol Therapy [RC] ASDIRECTED Care 01/01/19 23:14 Active RT Post Treatment Assessment [RC] Click to Edit Care 01/01/19 23:17 Active RT Pre-Treatment Assessment [RC] Click to Edit Care 01/01/19 23:17 Active Albuterol [Proventil HFA] Med 01/01/19 23:16 Active 6.7 gm INH Q4H PRN Medication Orders Albuterol (Proventil Hfa) 6.7 gm INH Q4H PRN PRN Reason: Wheezing Meds: Medications Generic Name Dose Route Start Last Admin Trade Name Freq PRN Reason Stop Dose Admin Albuterol 6.7 gm 01/01/19 23:16 Proventil Hfa INH Q4H PRN Wheezing Discontinued Medications Generic Name Dose Route Start Last Admin Trade Name Freq PRN Reason Stop Dose Admin Albuterol/Ipratropium 3 ml 01/01/19 23:14 01/01/19 23:22 Duoneb 3.0-0.5 Mg/3 Ml NEB 01/01/19 23:15 3 ml ONETIME ONE Administration Azithromycin 500 mg 01/01/19 23:15 Zithromax PO 01/01/19 23:16 ONETIME ONE Dexamethasone 8 mg 01/01/19 23:26 Dexamethasone PO 01/01/19 23:27 ONETIME ONE - Radiology Interpretation Free Text/Narrative:: 33-year-old female presents the ED with upper respiratory tract infection for the last week. Sinuses are congested and she has bilateral serous otitis media quite marked. Clinically she has significant eustachian tube dysfunction and allergic rhinitis. There is evidence of a postnasal drip. Tonsils are large but there is no exudate in or fax is minimally erythematous. Mild tenderness left submandibular lymph node. Lungs are essentially clear to stage percussion except for occasional expiratory wheeze on forced expiration. Assessment upper respiratory tract infection with sinusitis and marked bilateral serous otitis media with bronchitis. Treated with Zithromax 250 mg once daily for the next 8 days. Initial 500 mg dose given in the ED. She is allergic to oxycodone and therefore suspect codeine and therefore likely hydrocodone and therefore cough syrups are relatively contraindicated. She has utilized a albuterol metered- dose inhaler in the past. Were prescribed one from the ED to help with cough and wheezing and shortness of breath. We'll place her on a short course of prednisone 20 mg twice daily for 5 days and once in the morning for another 5 days to help alleviate both the sinus congestion and eustachian tube dysfunction and bronchitis. 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 Departure - Departure Time of Disposition: 23:25 Disposition: Home, Self-Care 01 Condition: Fair Clinical Impression: Bronchitis Bilateral serous otitis media Qualifiers: Chronicity: acute Recurrence: recurrent Qualified Code(s): H65.06 - Acute serous otitis media, recurrent, bilateral Sinusitis, acute Qualifiers: Sinusitis location: unspecified location Recurrence: recurrent Qualified Code(s ): J01.91 - Acute recurrent sinusitis, unspecified - Discharge Information *PRESCRIPTION DRUG MONITORING PROGRAM REVIEWED*: Not Applicable *COPY OF PRESCRIPTION DRUG MONITORING REPORT IN PATIENT BEV: Not Applicable Prescriptions: Azithromycin [Zithromax] 250 mg PO DAILY #8 tab predniSONE [Prednisone] 20 mg PO ASDIRECTED #15 tablet Instructions: Upper Respiratory Infection, Adult, Sinusitis, Adult, Easy-to- Read, How to Use a Metered Dose Inhaler, Acute Bronchitis, Adult, [id number] Referrals: PCP,None [Primary Care Provider] - Forms: ED Department Discharge, ED Return to Work/School Form Additional Instructions: Evaluation in the emergency room today guard step respiratory tract infection with harsh paroxysmal cough. Emanation reveals bilateral fluid behind both ears called serous otitis media. This is secondary to sinus infection which is occluding the eustachian tubes that drain into the back of your nose. Associated bronchitis with harsh paroxysmal cough. Lungs are clear to auscultation with no wheezing evident. Treatment is antibiotic Zithromax--first dose provided in the ED tonight then take to 50 mg every night at bedtime for the next 8 days to clear up sinus infection and bronchitis. Also take prednisone 20 mg twice daily with breakfast and supper for 5 days and then once in the morning only for another 5 days to relieve inflammation both in the sinuses and eustachian tubes and promote drainage. Also help with coughing. May use albuterol inhaler 2 puffs every 3-4 hours as needed for cough relief and chest congestion. Since you're allergic to oxycodone cough syrups are contraindicated as they contained codeine and hydrocodone. Note given to excuse her from the workplace tomorrow and probably the next day as well. - My Orders Last 24 Hours: My Active Orders 01/01/19 23:14 RT Aerosol Therapy [RC] ASDIRECTED 01/01/19 23:16 Albuterol [Proventil HFA] 6.7 gm INH Q4H PRN 01/01/19 23:17 RT Post Treatment Assessment [RC] Click to Edit RT Pre-Treatment Assessment [RC] Click to Edit - Assessment/Plan Last 24 Hours: My Active Orders 01/01/19 23:14 RT Aerosol Therapy [RC] ASDIRECTED 01/01/19 23:16 Albuterol [Proventil HFA] 6.7 gm INH Q4H PRN 01/01/19 23:17 RT Post Treatment Assessment [RC] Click to Edit RT Pre-Treatment Assessment [RC] Click to Edit
[2019-01-01] MEDS ORDERED: Azithromycin 250 MG Tab PO ONE (23:15)
[2019-01-01] MEDS ORDERED: Albuterol 6.7 GM Inhaler INH PRN (23:16)
[2019-01-01] MEDS ORDERED: Dexamethasone 4 MG Tab PO ONE (23:26)
== END 2019-01-01 23:50 | disposition home or self-care (01) ==
LOC: JD.ED 22:23
DX: J45.909 Unspecified asthma, uncomplicated (principal); H65.06 Acute serous otitis media, recurrent, bilateral; J01.91 Acute recurrent sinusitis, unspecified; F17.210 Nicotine dependence, cigarettes, uncomplicated; Z88.5 Allergy status to narcotic agent; Z91.018 Allergy to other foods; Z79.52 Long term (current) use of systemic steroids
CPT/HCPCS: 94640; 99283; 99284-25; A9270-GY; J7620-GY; J8540

== ENCOUNTER 2019-10-04 23:51 | Emergency (ER) | payer SELFPAY ==
[2019-10-05 00:15] VITALS: BP 124/88; PULSE 80
[2019-10-05] MEDS ORDERED: Amoxicillin 500 MG Cap PO ONE (00:24)
[2019-10-05] MEDS ORDERED: Acetaminophen/HYDROcodone 325-5 MG Tab PO ONE (00:25)
--- NOTE | 2019-10-05 00:26 | EDM.PDOC ---
ED HPI GENERAL MEDICAL PROBLEM - General Chief Complaint: ENT Problem Stated Complaint: TOOTH PAIN Time Seen by Provider: 10/05/19 00:17 Source of Information: Reports: Patient, RN Notes Reviewed - History of Present Illness INITIAL COMMENTS - FREE TEXT/NARRATIVE: 34 yr old female comes in with dental pain. She states a premolar L upper jaw fell out this past evening. She has a lot of pain. No facial swelling, fever or chills. Left Upper Tooth/Teeth Pain Score (Numeric/FACES): 8 - Related Data Allergies Allergy/AdvReac Type Severity Reaction Status Date / Time onion Allergy Swelling Verified 10/05/19 00:15 oxycodone [From OxyContin] Allergy Vomiting Verified 10/05/19 00:15 Home Meds: Home Meds Codeine/Promethazine [Phenergan with Codeine] 5 - 10 ml PO Q6HR PRN #300 ml 01/12/19 [Rx] predniSONE [Prednisone] 40 mg PO DAILY #10 tablet 01/12/19 [Rx] Acetaminophen/HYDROcodone [[place] 325-5 MG] 1 tab PO Q6H PRN #10 tablet 10/05/19 [Rx] Amoxicillin 500 mg PO TID #20 tab 10/05/19 [Rx] Past Medical History HEENT History: Reports: Other (See Below) Other HEENT History: dental issues Respiratory History: Reports: Asthma Musculoskeletal History: Reports: Fracture Other Musculoskeletal History: Mesh in cheek from orbital bone fx Psychiatric History: Reports: Depression - Past Surgical History HEENT Surgical History: Reports: Other (See Below) Other HEENT Surgeries/Procedures: screen placement Social & Family History - Family History Family Medical History: Noncontributory - Tobacco Use Smoking Status *Q: Current Every Day Smoker Years of Tobacco use: 19 Packs/Tins Daily: 0.5 - Caffeine Use Caffeine Use: Reports: Soda - Recreational Drug Use Recreational Drug Use: Yes Recreational Drug Type: Reports: Methamphetamine Recreational Drug Use Frequency: Not Used In Over 6 Months - Living Situation & Occupation Living situation: Reports: Single Occupation: Employed ED ROS GENERAL - Review of Systems Review Of Systems: See Below Constitutional: Denies: Fever, Chills HEENT: Reports: Dental Pain Respiratory: Reports: No Symptoms Cardiovascular: Reports: No Symptoms GI/Abdominal: Denies: Abdominal Pain, Vomiting Musculoskeletal: Reports: No Symptoms Skin: Reports: No Symptoms Neurological: Reports: No Symptoms ED EXAM, NEURO - Physical Exam Exam: See Below General Appearance: Alert, Moderate Distress Throat/Mouth: Other (L upper premolar is out, other teeth cavitated. N gum swelling or discharge) Neck: Supple Respiratory/Chest: No Respiratory Distress, Lungs Clear, Normal Breath Sounds Cardiovascular: Regular Rate, Rhythm Skin Exam: Warm, Dry, Normal Color, No Rash Course - Vital Signs Last Recorded V/S: Last Vital Signs Temp 98.5 F 10/05/19 00:10 Pulse 80 10/05/19 00:10 Resp 16 10/05/19 00:10 BP 124/88 10/05/19 00:10 Pulse Ox 100 10/05/19 00:10 - Orders/Labs/Meds Meds: Medications Discontinued Medications Generic Name Dose Route Start Last Admin Trade Name Freq PRN Reason Stop Dose Admin Hydrocodone Bitart/Acetaminophen 1 tab 10/05/19 00:25 10/05/19 00:52 [place] 325-5 Mg PO 10/05/19 00:26 1 tab ONETIME ONE Administration Amoxicillin 1,000 mg 10/05/19 00:24 10/05/19 00:53 Amoxil PO 10/05/19 00:25 1,000 mg ONETIME ONE Administration Departure - Departure Time of Disposition: 00:45 Disposition: Home, Self-Care 01 Condition: Fair Clinical Impression: Pain, dental - Discharge Information Prescriptions: Amoxicillin 500 mg PO TID #20 tab Acetaminophen/HYDROcodone [[place] 325-5 MG] 1 tab PO Q6H PRN #10 tablet PRN Reason: Pain Instructions: Benzocaine mouth gel, ointment, solution, or dental paste Referrals: PCP,None [Primary Care Provider] - Forms: ED Department Discharge, ED Return to Work/School Form Additional Instructions: Amoxicillin 500 mg 3 times daily for 1 week. Alternate tylenol and ibuprofen for mild to moderate pain or take hydrocodone if needed for severe pain. Do not drive or work when taking hydrodone. Prescriptions have been sent electronically to [facility]. See dentist as needed. Sepsis Event Note (ED) - Evaluation Sepsis Screening Result: No Definite Risk
== END 2019-10-05 00:56 | disposition home or self-care (01) ==
LOC: JD.ED 23:51
DX: K08.89 Other specified disorders of teeth and supporting structures (principal); J45.909 Unspecified asthma, uncomplicated; Z88.5 Allergy status to narcotic agent; Z91.018 Allergy to other foods
CPT/HCPCS: 99282; A9270

== ENCOUNTER 2021-06-14 14:40 | Emergency (ER) | payer MEDICAID ==
[2021-06-14] MEDS ORDERED: Ondansetron 4 MG/2 ML SDV IVPUSH ONE (15:21)
[2021-06-14] MEDS ORDERED: Sodium Chloride 0.9% 1,000 ML IV STA (15:21)
[2021-06-14] MEDS ORDERED: Sodium Chloride 0.9% 10 ML Syringe FLUSH PRN (15:21)
[2021-06-14 17:27] VITALS: BP 118/87; PULSE 89
== END 2021-06-14 17:27 | disposition home or self-care (01) ==
LOC: JD.ED 14:40
DX: K52.9 Noninfective gastroenteritis and colitis, unspecified (principal); Z91.018 Allergy to other foods; Z88.5 Allergy status to narcotic agent; Z20.822 Contact with and (suspected) exposure to COVID-19
CPT/HCPCS: 36415; 80053; 81001; 84703; 85025; 86140; 87635; 96374; 99284; J2405; J3490; J7030; U0002

== ENCOUNTER 2022-04-12 06:53 | Day surgery (SDC) | payer MEDICAID ==
[~2022-04-12 06:53] MED LIST: Lactated Ringers 1,000 ML IV SCH; Lidocaine 1%/Sod Bicarbonate in NS 8.4% 1 ML Syringe IDERM PRN; Sodium Chloride 0.9% 10 ML Syringe FLUSH PRN; Sodium Chloride 0.9% 10 ML Syringe FLUSH SCH
[2022-04-12] MEDS ORDERED: fentaNYL 100 MCG/2 ML SDV ONE (07:00)
[2022-04-12] MEDS ORDERED: Midazolam 1 MG/ML 2 ML SDV ONE (07:00)
[2022-04-12] MEDS ORDERED: Lidocaine 1% 5 ML VIAL ONE (07:00)
[2022-04-12] MEDS ORDERED: Propofol 200 MG/20 ML SDV ONE (07:00)
[2022-04-12] MEDS ORDERED: ceFAZolin 2 GM Vial ONE (07:01)
[2022-04-12] MEDS ORDERED: Triamcinolone Acetonide 40 MG/ML 1 ML SDV ONE (07:03)
[2022-04-12] MEDS ORDERED: Bupivacaine 0.25% 10 ML SDV ONE ×2 (07:04→07:16)
[2022-04-12] MEDS ORDERED: Lidocaine 1% 10 ML MDV ONE (07:04)
[2022-04-12] MEDS ORDERED: Ketorolac 30 MG/ML SDV ONE (08:51)
[2022-04-12 10:09] VITALS: BP 118/78; PULSE 76
== END 2022-04-12 09:28 | disposition home or self-care (01) ==
LOC: JD.SDS 06:53
PROVIDERS: ATTEND Orthopaedic Surgery
DX: G56.03 Carpal tunnel syndrome, bilateral upper limbs (principal); G56.13 Other lesions of median nerve, bilateral upper limbs; F41.9 Anxiety disorder, unspecified; F32.A Depression, unspecified; J45.909 Unspecified asthma, uncomplicated; G47.00 Insomnia, unspecified; Z88.5 Allergy status to narcotic agent; Z79.899 Other long term (current) drug therapy; Z91.018 Allergy to other foods; Z87.891 Personal history of nicotine dependence
CPT/HCPCS: 20526; 64721; 81025; J0690; J1885; J2250; J2704; J3010; J3301; J3490; J7120; 01810